=== PATIENT | female | born 1930 | race Caucasian/White ===

== ENCOUNTER 2018-03-21 07:30 | Inpatient (IN) ==
[2018-03-28 05:55] VITALS: BMI 29.0
[2018-03-28] MEDS ORDERED: LIDOCAINE 1% (10mg/ml) 2mL INJ PF SDV ID ONE (06:00)
[2018-03-28] MEDS ORDERED: MELOXICAM 15 MG TABLET PO ONE (06:00)
[2018-03-28] MEDS ORDERED: TRANEXAMIC ACID 1,000 MG in NS 100 ML IV ONE ×2 (06:00→07:00)
[2018-03-28] MEDS ORDERED: METOCLOPRAMIDE 10mg/2ml INJECTION IVP ONE (06:00)
[2018-03-28] MEDS ORDERED: ACETAMINOPHEN 500 MG TABLET PO ONE (06:00)
[2018-03-28] MEDS ORDERED: ONDANSETRON 4 MG/2 ML INJECTION IVP ONE (06:00)
[2018-03-28] MEDS ORDERED: FAMOTIDINE PB 20 MG/50 ML BAG IV ONE (06:00)
[2018-03-28] MEDS: LR 1,000 ML IV SCH ×3 (06:25→09:30)
[2018-03-28] MEDS: NOZIN NASAL SWAB NAS SCH ×5 (06:29→21:04)
[2018-03-28] MEDS ORDERED: VANCOMYCIN 1,000 MG INJECTION ONE (06:34)
[2018-03-28] MEDS ORDERED: CEFAZOLIN 1 G INJECTION IVP ONE (06:53)
[2018-03-28] MEDS ORDERED: FentaNYL 100 MCG/2 ML INJECTION ONE (07:11)
[2018-03-28] MEDS ORDERED: MIDAZOLAM 2mg/2ml INJECTION ONE (07:11)
[2018-03-28] MEDS ORDERED: BUPIVACAINE 0.75%/DEXTROSE 8.5% SPINAL 2 ML AMPULE IJ ONE (07:13)
[2018-03-28] MEDS ORDERED: LIDOCAINE 2% (100mg/5mL) 5ml PF SDV ONE (07:13)
[2018-03-28] MEDS ORDERED: KETAMINE 500 MG/10 ML INJECTION ONE (07:28)
[2018-03-28] MEDS ORDERED: VANCOMYCIN 1,000 MG INJECTION IAR ONE (07:46)
[2018-03-28] MEDS ORDERED: EPHEDRINE 50mg/ml INJECTION ONE (07:58)
[2018-03-28] MEDS ORDERED: EPINEPHrine PF 0.25 MG, BUPIVACAINE 0.25% PF 30 ML, KETOROLAC INJ 60 MG in NS 30 ML OPSITE ONE (08:00)
--- NOTE | 2018-03-28 08:16 | Anesthesia Preoperative Report ---
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 Proposed Procedure: right total knee arthroplasty NPO Since Date: 03/27/18 NPO Since Time: 23:00 Allergies/Adverse Reactions: Allergies Allergy/AdvReac Type Severity Reaction Status Date / Time gluten Allergy Intermediate itching, Verified 03/28/18 06:09 insomnia latex Allergy Mild RASH Verified 01/31/18 10:45 Penicillins Allergy Unknown Verified 03/28/18 06:09 glimepiride AdvReac Intermediate Verified 03/28/18 06:09 - Vital Signs Vital Signs: Temperature 97.8 F 03/28/18 05:53 Pulse Rate 71 03/28/18 06:14 Respiratory Rate 16 03/28/18 05:53 Blood Pressure 134/64 03/28/18 05:53 Pulse Oximetry 95 03/28/18 05:53 Height and Weight: Height 1.66 m Weight 80.4 kg Body Mass Index 29.0 - Medications Inpatient Medications: Current Medications Lactated Ringer's (Lactated Ringers) 1,000 mls @ 50 mls/hr IV .Q20H [facility] Last Admin: 03/28/18 07:55 Dose: 50 mls/hr Epinephrine HCl 0.25 mg/Bupivacaine HCl 30 ml/Ketorolac Tromethamine 60 mg/ Sodium Chloride 62.25 mls @ 1 mls/hr OPSITE INTRAOP ONE; Protocol Stop: 03/30/18 22:14 Isopropyl Alcohol (Nozin Nasal Swab) 1 each CALIN Q1M SKIP Stop: 03/28/18 11:03 Last Admin: 03/28/18 06:42 Dose: 1 each Sodium Chloride (Iv Flush) 10 - 80 ml IV PRN PRN PRN Reason: [place] Home Medications: Home Medications Medication Instructions Recorded Confirmed Type Flonase (Fluticasone) 50 mcg nasal 2 spray INTRANASAL DAILY 90 Days 09/27/17 Rx spray #48 g Lipitor (atorvastatin) 10 mg tablet 10 mg PO DAILY #90 tab 10/28/17 03/28/18 Rx Glucophage (metformin) 500 mg 1,000 mg PO BID #180 tab 11/21/17 03/28/18 Rx tablet levothyroxine 112 mcg tablet 112 mcg PO DAILY 90 Days #90 tab 01/16/18 03/28/18 Rx calcium citrate-vitamin D3 315 1 tab PO DAILY tab 01/26/18 03/28/18 History mg-200 unit tablet vit C 250 mg-E 200 unit-zinc 40 1 tab PO BID 01/26/18 03/28/18 History mg-copper 1 [id number] capsule Cetirizine [Zyrtec] 10 mg PO DAILY 03/21/18 03/28/18 History Oxybutynin IR [Ditropan] 5 mg PO DAILY 03/21/18 03/28/18 History Sertraline [Zoloft] 50 mg PO DAILY 03/21/18 03/28/18 History - Medical History Respiratory: Reports: Pneumonia (as a child), Other (seasonal allergies) DENIES: Sleep Apnea Cardiovascular: Reports: Other (hyperlipidemia) Gastrointestional: Reports: Gastroesophageal Reflux Disease (occasional), Other (IBS, gluten intolerance) Neuro/Musculoskeletal: Reports: Depression Renal/Endocrine: Reports: Diabetes Mellitus Type 2 (does not check bs at home ) , Thyroid Disease (hypothyroidism, on meds) Other History: Reports: Blood Transfusions (no known reactions), Other (vitiligo ) - Surgical History HEENT Surgeries: Reports: Eye Surgery (cataract ext with IOL-sarah), Tonsillectomy GI Surgery/Treatments: Reports: Colonoscopy (polyp) Musculoskeletal Surgery/Tx: Reports: Knee Arthroscopy (right and left) Reproductive Surgery/Treatment: Reports: Hysterectomy (vag hyst), Oophorectomy Anesthesia Reactions: None Hx Family Anesthesia Reaction: No - Social History Smoking Status: Never smoker Alcohol Intake Frequency: does not drink - Pertinent Findings Laboratory: CBC and BMP 03/28/18 06:13 BMP 03/28/18 06:13 Sodium 140 Potassium 4.2 Chloride 104 Carbon Dioxide 23 BUN 19.0 H Creatinine 0.5 L Glucose 153 H Calcium 9.5 EKG: Sinus Rhythm - Physical Exam Respiratory Exam: Present: lungs clear, bilateral breath sounds equal Cardiovascular Exam: Present: regular rate and rhythm - Airway Assessment Mallampati Score: II TMD: 3 Fingerbreadths Neck Extension: fair Overall Assessment: may be difficult intubation - ASA ASA Score: 2 - Plan Regional/Trunk Block: Spinal Peripheral Nerve Block: Adductor Canal-Right - Discussion Discussion: Discussed risks/options/alternatives of anesthesia and questions answered. Patient consents. Nursing pain assessment noted. Attestation Statement: Prior to the delivery of any anesthetic medication, I examined the patient, developed the plan, obtained the patient's consent and discussed the risk and benefits of the procedure with the patient/guardian. - Additional Information Seen by Anesthesia: Yes
[2018-03-28] MEDS ORDERED: ROPIVACAINE 0.5% (5mg/ml) 30ml INJ ONE (08:23)
--- NOTE | 2018-03-28 08:37 | Operative Note ---
- Procedure Preoperative Diagnosis: Right knee primary degenerative joint disease Postoperative Diagnosis: Same as preoperative diagnosis. Surgeon: Aicha Tao MD Psychiatry Teacher: Rafa Reardon Complications: None. Anesthesia: Spinal. Estimated Blood Loss: See Anesthesia Record. Fluids: Please see Anesthesia Record. Description of Procedure: Mrs. Blake and her right knee were identified and marked in the preoperative holding area. She was brought back to the operating suite. Spinal anesthetic was administered and she was placed supine on the operating table. The right lower extremity was prepped and draped in my normal sterile fashion. Timeout was performed. The [employer] robotic arm was used during the surgery. She will partially correctable varus deformity with a small flexion contracture of 5. A standard anterior midline incision followed by medial parapatellar arthrotomy was performed. Anterior fat pad and meniscus were removed. The patella was everted and a patellar osteotomy was performed leaving 14 mm of bone. Tibial and femoral arrays and checkpoints were placed both within the original incision. The bone was then registered with the [employer] robot. Osteophytes were removed and gaps were captured both 90 and 0 with correction. The knee was balanced by externally rotating the femoral component 2 and placing 1 of varus in the tibial component. This balanced her at 18 mm throughout. The [employer] robotic arm was then used to assist with the bone cuts. Posterior osteophytes and remaining meniscus were removed. Trial components were placed. We used a 4 femur and a 5 tibia with a 9 mm spacer and a 29 patella. She tracked well and was well balanced throughout range of motion. The arrays were then removed. The tibia was then stamped the proper rotation. The bone was prepared for cementing I then cemented the components into place and allowed them to cure in extension. Hemostasis was obtained with electrocautery. After the cement had cured the knee again was taken through range of motion and was well balanced and tracked well. After a final thorough irrigation with normal saline as well as Betadine 1 g vancomycin powder was placed into the knee joint. We then closed the capsule with #1 Vicryl. I then left my employee relations assistant closed the subcutaneous tissue with both 2-0 Vicryl in an interrupted fashion. The subcutaneous tissue closed with a 4-0 Monocryl followed by Dermabond. Mediplex dressing will be placed and the patient will be taken back to the recovery room under the care of anesthesia.
[2018-03-28] MEDS ORDERED: ONDANSETRON 4 MG/2 ML INJECTION IVP PRN ×2 (09:16→10:11)
[2018-03-28] MEDS ORDERED: HYDROMORPHONE 2 MG/ML INJECTION IVP PRN (09:16)
--- NOTE | 2018-03-28 09:16 | Anesthesia Postoperative Note ---
- Date and Time Date: 03/28/18 Time: 09:20 - Status Patient Participated in Evaluation: Patient Participated in Person Vital Signs: Temperature 97.8 F 03/28/18 05:53 Pulse Rate 71 03/28/18 06:14 Respiratory Rate 16 03/28/18 05:53 Blood Pressure 134/64 03/28/18 05:53 Pulse Oximetry 95 03/28/18 05:53 Respiratory Function: Airway Patent Cardiovascular Function: Regular Pulse EKG: Sinus Rhythm Mental Status: Alert and Oriented Pain Intensity: 0 Hydration: IV Infusing Nausea/Vomiting: None Complications During Recover: None Apparent - Follow-Up Instructions Instructions: Per Surgeon
--- NOTE | 2018-03-28 09:18 | Anesthesia Procedure Note ---
Peripheral Nerve Blockade - Procedure Physician: Sriram Tao MD Date: 03/28/18 Surgical Procedure: right knee arthroplasty Discussion: Discussed risks/options/alternatives of anesthesia and questions answered. Patient consents. Nursing pain assessment noted. Block Employed: Adductor Canal-Right Indication: Post-Operative Pain Approach: Right Side Confirmed Position: Supine Patient: Consent, Risks/Benefits Discussed, Informed, Post Block Act. Discussed Initial Vital Signs: Temperature 97.8 F 03/28/18 05:53 Temperature Source Oral 03/28/18 05:53 Pulse Rate 70 03/28/18 05:53 Respiratory Rate 16 03/28/18 05:53 Blood Pressure 134/64 03/28/18 05:53 Blood Pressure Mean 87 03/28/18 05:53 Blood Pressure Position Sitting 03/28/18 05:53 Pulse Oximetry 95 03/28/18 05:53 Oxygen Delivery Method 03/28/18 05:53 Post Vital Signs: Temperature 97.8 F 03/28/18 05:53 Pulse Rate 71 03/28/18 06:14 Respiratory Rate 16 03/28/18 05:53 Blood Pressure 134/64 03/28/18 05:53 Pulse Oximetry 95 03/28/18 05:53 Initial Pain Pain Score: 0 Post Block Pain Score: 0 Prep: Chlorhexadine/ETOH Ultrasound Used?: Yes - Injectate Ropivacaine (%): 0.5 Ropivacaine (mL): 15 Injection: Injection made incrementally with constant monitoring and aspiration every ml
--- NOTE | 2018-03-28 09:54 | XRay Report ---
Indication: postoperative image PROCEDURE: XR knee RT 2V: Encounter: Initial Comparison: December 20, 2017 Findings: Postoperative changes of right total knee replacement are seen. There is expected postoperative subcutaneous gas. No evidence of hardware failure or acute fracture. No retained radiopaque surgical instruments or sponges. Overlying material causing artifact. Impression: New right total knee prosthesis without evidence of immediate complication. .
[2018-03-28] MEDS ORDERED: DiphenhydrAMINE 25 MG CAPSULE PO PRN (10:11)
[2018-03-28] MEDS ORDERED: NOZIN NASAL SWAB NAS ONE (10:11)
[2018-03-28] MEDS ORDERED: LORazepam 1 MG TABLET PO PRN (10:11)
[2018-03-28] MEDS ORDERED: DiphenhydrAMINE 50 MG/ML INJECTION IVP PRN (10:11)
[2018-03-28] MEDS ORDERED: DEXAMETHASONE 20 MG/5 ML INJECTION IVP ONE (10:11)
[2018-03-28] MEDS: ACETAMINOPHEN 325 MG TABLET PO SCH ×4 (10:52→21:03)
[2018-03-28] MEDS: DOCUSATE SODIUM 100 MG CAPSULE PO SCH ×2 (10:52→21:03)
[2018-03-28] MEDS: NS 1,000 ML IV SCH (10:53)
[2018-03-28] MEDS ORDERED: SALINE FLUSH 10ml SYRINGE IV PRN (10:54)
[2018-03-28] MEDS: POLYETHYL GLYCOL 3350 17gm PACKET PO SCH (10:58)
[2018-03-28] MEDS: FLUTICASONE NASAL SPRAY 50mcg EA NOSTRIL SCH (10:59)
[2018-03-28] MEDS: CETIRIZINE 10 MG TABLET PO SCH (10:59)
[2018-03-28] MEDS: SERTRALINE 50 MG TABLET PO SCH (11:39)
[2018-03-28] MEDS: LEVOTHYROXINE 112 MCG TABLET PO SCH (11:39)
[2018-03-28] MEDS: Oxycodone *IR* 5 MG TABLET PO PRN (12:16)
[2018-03-28] MEDS: INSULIN ASPART 100unit/ml INJECTION SQ PRN (14:14)
[2018-03-28] MEDS: CEFAZOLIN 2 G in NS 100 ML IV SCH ×2 (15:13→23:00)
[2018-03-28] MEDS: NAPROXEN 220 MG TABLET PO SCH (17:14)
[2018-03-28] MEDS ORDERED: ATORVASTATIN 10 MG TABLET PO SCH (21:00)
[2018-03-28] MEDS ORDERED: SENNOSIDES 8.6 MG TABLET PO SCH (21:00)
[2018-03-28] MEDS: ASPIRIN *EC* 81 MG TABLET PO SCH (21:04)
[2018-03-29] MEDS: NS 1,000 ML IV SCH ×2 (01:33→11:18)
[2018-03-29] MEDS: Oxycodone *IR* 5 MG TABLET PO PRN ×3 (06:00→13:13)
[2018-03-29] MEDS: NOZIN NASAL SWAB NAS SCH ×2 (06:00→15:20)
[2018-03-29] MEDS: LEVOTHYROXINE 112 MCG TABLET PO SCH (06:00)
[2018-03-29] MEDS ORDERED: METFORMIN 1,000 MG TABLET PO SCH (08:00)
--- NOTE | 2018-03-29 08:11 | Orthopedic Progress Note ---
Date: Date: 03/29/18 Time: 805 Subjective/Severity of Illness: Rachell is doing well. She didn't sleep well due to so many interruptions. Pain is not too bad. Her oxygen dipped into the upper 80's last night and she was put on [place] oxygen. Denies feeling SOA. She has coughed but states that is not unusual for her with nasal drainage when she is recumbent. No CP or GI complaints. She is planning on going home and will have a son living with her for several days. Orthopedic Exam Vital signs: Temperature 97.6 F 03/29/18 07:26 Pulse Rate 57 L 03/29/18 07:26 Respiratory Rate 14 03/29/18 07:26 Blood Pressure 118/84 03/29/18 07:26 Pulse Oximetry 93 03/29/18 07:26 - Constitutional General Appearance: Present: alert, cooperative, no acute distress - Respiratory Exam Present: non-labored - Dressing Dressing: dry, intact, no drainage - Neurological Exam Present: no deficits - Psychiatric Exam Present: alert, normal affect - Labs Result Diagrams: 03/29/18 03:54 03/29/18 03:54 Abnormal lab results 03/29/18 03/29/18 Range/Units 03:54 03:54 Hgb 10.4 L (12-16) GM/DL BUN 18.0 H (7-17) MG/DL Creatinine 0.6 L (0.7-1.2) mg/dL BUN/Creatinine Ratio 30 H (6-26) RATIO Glucose 136 H (65-110) MG/DL Calcium 8.3 L D (8.4-10.2) MG/DL H & H 03/29/18 Range/Units 03:54 Hgb 10.4 L (12-16) GM/DL Orthopedic Assessment and Plan (1) Primary osteoarthritis of right knee Status: Acute Assessment and Plan: Aspirin protocol for VTE prophylaxis. SCD's for added DVT coverage. Blood sugars 136-153 range. Will resume Metformin. PT/OT services to improve independent function. Discharge Planning per Case Management. - Anticoagulation Therapy Anticoagulation: ASA 81 mg PO BID x6 weeks - Additional Diagnoses Diabetes: resume oral medications Hospital Course Summary Disclaimer: The visit summary below is not to be considered part of the above Progress Note.
[2018-03-29] MEDS: SERTRALINE 50 MG TABLET PO SCH (08:40)
[2018-03-29] MEDS: CETIRIZINE 10 MG TABLET PO SCH (08:40)
[2018-03-29] MEDS: NAPROXEN 220 MG TABLET PO SCH (08:41)
[2018-03-29] MEDS: ASPIRIN *EC* 81 MG TABLET PO SCH (08:42)
[2018-03-29] MEDS: ACETAMINOPHEN 325 MG TABLET PO SCH ×2 (08:42→13:14)
[2018-03-29] MEDS: DOCUSATE SODIUM 100 MG CAPSULE PO SCH (08:43)
[2018-03-29] MEDS: POLYETHYL GLYCOL 3350 17gm PACKET PO SCH (08:43)
[2018-03-29] MEDS: FLUTICASONE NASAL SPRAY 50mcg EA NOSTRIL SCH (08:44)
[2018-03-29] MEDS ORDERED: SENNOSIDES 8.6 MG TABLET PO PRN (08:59)
[2018-03-29 11:47] VITALS: BP 138/62; PULSE 58; O2SAT 95
[2018-03-29] MEDS: INSULIN ASPART 100unit/ml INJECTION SQ PRN (11:53)
[2018-03-29 11:57] VITALS: TEMP 97.2
--- NOTE | 2018-03-29 12:58 | Discharge Summary ---
Letter to PCP Cover Letter: This is a short letter to update you on your patient's status and to ask for your assistance in managing their postoperative needs. Rachell Blake underwent an elective right total knee arthroplasty by Dr. Tao on 03/28/18. Aspirin therapy was initiated for DVT prophylaxis. Aspirin 81mg should be given BID for six weeks postoperatively. Details for their hospitalization can be found in the discharge summary attached. The patient is scheduled to see you one week after surgery for a post-operative check. I hope you find the discharge summary informative and helpful as you resume care of your patient after their surgery. If our office can be of any assistance, please feel free to contact us any time. Orthopedic Discharge Info Date of admission: 03/28/18 05:32 Primary care physician: Joselin Alejandro APRN Attending Physician: Sriram Tao MD Consults: 03/28/18 05:42 Consult to Anesthesiology [CONS] Routine Reason For Exam: Preoperative Assessment 03/28/18 10:11 Case Management Consult [CONS] Routine Reason For Exam: Discharge Planning DME-Walker [CONS] Routine Height: 5 ft 5.5 in Weight: 80.4 kg Total Joint Outpatient Therapy [CONS] Routine Comment: Remove dressing in 2 weeks - Discharge Diagnosis (1) Primary osteoarthritis of right knee Status: Acute - Laboratory Result Diagrams: 03/29/18 03:54 03/29/18 03:54 Laboratory: Abnormal lab results 03/29/18 03/29/18 Range/Units 03:54 03:54 Hgb 10.4 L (12-16) GM/DL BUN 18.0 H (7-17) MG/DL Creatinine 0.6 L (0.7-1.2) mg/dL BUN/Creatinine Ratio 30 H (6-26) RATIO Glucose 136 H (65-110) MG/DL Calcium 8.3 L D (8.4-10.2) MG/DL H & H 03/29/18 Range/Units 03:54 Hgb 10.4 L (12-16) GM/DL Orthopedic Discharge HPI - HPI Comments This patient was admitted for elective surgical tx of end stage degenerative joint disease that failed to respond to conservative treatment. Further details of this is found in the admission H&P. Orthopedic Hospital Course Hospital course: 03/29/18 12:56 After appropriate preoperative clearance and signing of operative consent, the patient was given IV antibiotics, according to orthopedic protocol. The patient was taken to the operating room and underwent elective right total knee arthroplasty on 03/28/18. Following surgery, antibiotics were discontinued less than 24 hours according to joint protocol. Aspirin was initiated and SCDs added for DVT prevention. The dressing was clean, dry, and intact. Pain control was obtained via multimodal approach. Bowel motivation addressed with scheduled and PRN medications. Early mobilization was initiated through PT services. Discharge arrangements made by a collaborative effort between the patient and Case Management. Her post op hgb was 10.4 at discharge and electrolytes were normal. Her glucose was in the 130-150 range and Metformin was restarted. Follow-up is scheduled in 2-3 weeks. Discharge instructions given by orthopedic providers and nursing staff at discharge. Discharge condition was good. Care extended to > 2 midnight stays?: No Discharge Plan - Med Rec/Dispo Referrals/Follow Up: Joselin Alejandro APRN [Primary Care Provider] - 04/04/18 1:45 pm Rafa Reardon PA [Physician Cellular Equipment Repairer] - 04/19/18 10:30 am [place] Inst[place] [facility] [place] Prescriptions: New Acetaminophen [Tylenol] 650 mg PO QID tablet Aspirin *EC* [Ecotrin] 81 mg PO BID tablet Docusate Sodium [Colace] 100 mg PO BID PRN capsule PRN Reason: Constipation PEG 3350 17gm PACKET [Miralax] 17 gm PO DAILY PRN packet PRN Reason: Constipation /Stool Softening Oxycodone *IR* [Roxicodone *Ir*] 5 - 10 mg PO Q3H PRN #50 tablet PRN Reason: Breakthrough Pain Naproxen [Aleve (Naproxen) 220 mg] 440 mg PO BIDWM tablet Continue Cetirizine [Zyrtec] 10 mg PO DAILY Oxybutynin IR [Ditropan] 5 mg PO DAILY Sertraline [Zoloft] 50 mg PO DAILY levothyroxine 112 mcg tablet 112 mcg PO DAILY 90 Days #90 tab calcium citrate-vitamin D3 315 mg-200 unit tablet 1 tab PO DAILY tab vit C 250 mg-E 200 unit-zinc 40 mg-copper 1 [id number] capsule 1 tab PO BID Flonase (Fluticasone) 50 mcg nasal spray 2 spray INTRANASAL DAILY 90 Days # 48 g Lipitor (atorvastatin) 10 mg tablet 10 mg PO DAILY #90 tab Glucophage (metformin) 500 mg tablet 1,000 mg PO BID #180 tab - Disposition 01 Discharged Home, Self-Care - Dismissal Complete Discharge Instructions are:: Complete
[2018-03-29 13:15] VITALS: RESP 16
[2018-03-30] MEDS ORDERED: BISACODYL 10 MG SUPPOSITORY RECTALLY SCH (20:00)
== END 2018-03-29 15:20 | disposition home or self-care (01) | DRG 470 ==
LOC: NMC.PERIOP 03-28 05:32 → SRG 03-28 09:57
PROVIDERS: ADMIT Orthopaedic Surgery; ATTEND Orthopaedic Surgery

== ENCOUNTER 2018-04-11 16:28 | Inpatient (IN) ==
[2018-04-11] MEDS ORDERED: SALINE FLUSH 10ml SYRINGE IVF PRN (17:03)
[2018-04-11] MEDS ORDERED: PROCHLORPERAZINE 10 MG/2 ML INJECTION IVP ONE (17:04)
--- NOTE | 2018-04-11 17:07 | Emergency Department Report ---
General Adult HPI - General Chief complaint: Medical Emergency Stated complaint: weakness/not feeling well post surgery Time Seen by Provider: 04/11/18 17:02 Source: patient Mode of arrival: ambulatory Limitations: no limitations - History of Present Illness HPI narrative: Patient's a 7-year-old female, status post right total knee done by Dr. Tao. Patient doing relatively well at home, however the last 2 days patient's had significant not feeling well, wooziness, nausea with some mild headache. Patient not having any increased knee pain no discharge or swelling. Patient brought to the ER for evaluation - Related Data Home Medications Medication Instructions Recorded Confirmed Acetaminophen 650 mg PO QID 04/11/18 04/11/18 Aspirin *EC* [Ecotrin] 81 mg PO BID 04/11/18 04/11/18 Atorvastatin [Lipitor] 10 mg PO DAILY 04/11/18 04/11/18 CALCIUM CITRATE 315mg + D 1 tab PO DAILY 04/11/18 04/11/18 [Citrical + D] Cetirizine HCl [Zyrtec] 10 mg PO DAILY 04/11/18 04/11/18 Docusate Sodium [Colace] 100 mg PO BID PRN 04/11/18 04/11/18 Fluticasone Nasal [place] [Flonase] 1 spray EA NOSTRIL DAILY 04/11/18 04/11/18 Metformin HCl 1,000 mg PO BID 04/11/18 04/11/18 Naproxen [Aleve (Naproxen) 220 mg] 440 mg PO BIDWM 04/11/18 04/11/18 Oxybutynin IR [Ditropan] 5 mg PO DAILY 04/11/18 04/11/18 Oxycodone *IR* [Roxicodone *Ir*] 5 - 10 mg PO Q3H PRN 04/11/18 04/11/18 PEG 3350 17gm PACKET [Miralax] 17 gm PO DAILY PRN 04/11/18 04/11/18 Sertraline [Zoloft] 50 mg PO DAILY 04/11/18 04/11/18 Vit C/E/Zn/Coppr/Lutein/Zeaxan 1 cap PO BID 04/11/18 04/11/18 [Preservision Areds 2 Softgel] Previous Rx's Medication Instructions Recorded Milk of Magnesia [Mom] 30 ml PO DAILY PRN #210 ml 04/13/18 levothyroxine 112 mcg tablet 112 mcg PO DAILY #90 tab 04/17/18 Allergies Allergy/AdvReac Type Severity Reaction Status Date / Time gluten Allergy Intermediate itching, Verified 04/11/18 16:53 insomnia latex Allergy Mild RASH Verified 04/11/18 16:53 Penicillins Allergy Unknown Verified 04/11/18 16:53 glimepiride AdvReac Intermediate Verified 04/11/18 16:53 Review of Systems Constitutional: Reports: weakness. Denies: fever, chills Eyes: Denies: eye pain, eye discharge, vision change ENT: Denies: throat pain, dental pain Cardiovascular: Denies: chest pain, palpitations Respiratory: Denies: cough, dyspnea, wheezes Gastrointestinal: Denies: abdominal pain, nausea, vomiting Genitourinary: Denies: dysuria, frequency Musculoskeletal: Reports: as per HPI Neurological: Reports: headache, weakness. Denies: numbness, paresthesias Psychiatric: Denies: anxiety Endocrine: Reports: fatigue Hematological/Lymphatic: Denies: easy bleeding PFSH Patient Stated Medical History Other Respiratory Yes: seasonal allergies Diabetes Mellitus Type 2 Yes: does not check bs at home Gastroesophageal Reflux Yes: occasional Disease Clinic Medical History (Last Reviewed 04/04/18 @ 13:40 by ALBIN Block) Gluten intolerance (Chronic Medical) Tubular adenoma of colon (Chronic Medical) Depressive disorder (Chronic Medical) Type 2 diabetes mellitus (Chronic Medical) Vitiligo (Chronic Medical) Urge incontinence (Chronic Medical) Benign hematuria (Chronic Medical) mild Hypothyroidism (Chronic Medical) IBS (irritable bowel syndrome) (Chronic Medical) constipation Environmental and seasonal allergies (Chronic Medical) Hyperlipidemia (Chronic Medical) Surgical History: Tonsillectomy. Vaginal hysterectomy for fibroids in 1968. Bladder suspension and oophorectomy in 1988. Right cataract 08/2009; left cataract 09/2009. 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 Right knee arthroscopy, meniscus repair (05/2011). Left knee arthroscopy with meniscus repair (09/2013). Right total knee replacement (03/28/2018) Family History: Family History (Last Reviewed 04/04/18 @ 13:40 by ALBIN Block) Father , age 79 Stomach cancer Mother , age 89 Cancer of breast Heart attack, Onset Age: 72 Brother , age 73 Esophageal cancer Sister , age 74 Pancreatic cancer Sister , age 84 Dementia Sister , age 94 Irregular heart rate CHF (congestive heart failure) - Social History Smoking status: Never smoker Alcohol intake frequency: does not drink Housing: other Current occupational status: retired Current residence: Apartment/Private Home Physical Exam - Limitations Limitations: no limitations - General General appearance: alert, in no apparent distress - Head Head exam: atraumatic, normocephalic, normal inspection - Eye Eye exam: Present: PERRL, EOMI - ENT ENT exam: Present: normal oropharynx, mucous membranes moist, TM's normal bilaterally - Neck Neck exam: Present: trachea midline. Absent: tenderness - Chest Chest inspection: Present: symmetric chest wall rise. Absent: tenderness - Respiratory Respiratory exam: Present: normal lung sounds bilaterally. Absent: respiratory distress, wheezes, stridor - Cardiovascular Cardiovascular exam: Present: regular rate, normal rhythm, normal heart sounds - Abdominal Exam Abdominal exam: Present: soft, normal bowel sounds. Absent: distention, tenderness - Extremities Exam Extremities exam: Present: full ROM, other (well-healing wound, covered bandage is not removed no signs of erythema no tenderness to palpation) - Skin Skin exam: Present: warm, dry - Neurological Exam Neurological exam: Present: alert, oriented X3 - Psychiatric Psychiatric exam: Present: normal affect, normal mood Course Vital Signs Temperature 97.8 F 04/11/18 16:28 Pulse Rate 73 04/11/18 16:28 Respiratory Rate 18 04/11/18 16:28 Blood Pressure 160/74 H 04/11/18 16:28 Pulse Oximetry 96 04/11/18 16:28 Temperature 98.3 F 04/13/18 15:16 Pulse Rate 62 04/13/18 15:16 Respiratory Rate 18 04/13/18 15:16 Blood Pressure 128/57 04/13/18 15:16 Pulse Oximetry 97 04/13/18 15:16 Medical Decision Making - Medical Records Medical records reviewed: Yes: I reviewed the patient's medical records. - Lab Data Lab results reviewed: Yes: I reviewed the patient's lab results. Result diagrams: 04/11/18 17:26 04/13/18 09:38 Lab Results 04/11/18 04/11/18 04/11/18 Range/Units 17:26 17:26 17:26 WBC 5.3 (4.5-11.0) T/MM3 RBC 3.93 L (4.00-5.20) M/MM3 Hgb 11.8 L (12-16) GM/DL Hct 34.5 L (36-46) % MCV 87.8 (80-100) UM3 MCH 30.0 (26-34) UUG MCHC 34.2 (31-37) GM/DL RDW Std Deviation 37.6 (36.9-50.2) FL Plt Count 360 D (130-400) T/MM3 MPV 9.3 L (9.4-12.4) UM3 Immature Gran % (Auto) 0.2 (0.0-0.5) % Neut % (Auto) 80.2 H (33-66) % Lymph % (Auto) 14.8 L (23-45) % [place] % (Auto) 3.8 (0-9.0) % Eos % (Auto) 0.4 (0-4) % Baso % (Auto) 0.6 (0-2) % Neut # (Auto) 4.3 (1.8-7.7) T/MM3 Lymph # (Auto) 0.8 L (1-4.8) T/MM3 [place] # (Auto) 0.2 (0-0.8) T/MM3 Eos # (Auto) 0.0 (0-0.5) T/MM3 Baso # (Auto) 0.0 (0-0.2) T/MM3 Abs Immat Gran (auto) 0.01 (0.00-0.03) T/MM3 Turbidity < 20 (0-20) Sodium 123 L (136-146) MEQ/L Potassium 3.8 (3.6-5) MEQ/L Chloride 89 L (98-107) MEQ/L Carbon Dioxide 20 L (22-30) MEQ/L Anion Gap 14 (5-15) meq/L BUN 10.0 (7-17) MG/DL Creatinine 0.4 L (0.7-1.2) mg/dL Estimated Creat Clear 43 (>50) mL/min GFR Calculation 151 (>60) mL/min BUN/Creatinine Ratio 25 (6-26) RATIO Glucose 183 H (65-110) MG/DL Calculated Osmolality 242 L (261-280) MOSM/KG Calcium 8.7 (8.4-10.2) MG/DL Magnesium (1.6-2.3) MG/DL Total Bilirubin 0.40 (0.20-1.30) MG/DL Icterus Index < 2 (0-7) AST 26 (14-36) U/L ALT 17 (1-35) U/L Alkaline Phosphatase 86 (38-126) U/L Troponin I < 0.012 (0-0.12) ng/ml Total Protein 7.2 (6.3-8.2) g/dL Albumin 4.4 (3.5-5.0) g/dL Globulin 2.8 (2.4-3.6) G/DL Albumin/Globulin Ratio 1.6 (1.1-2.2) RATIO TSH 2.02 (0.47-4.68) mIU/L Specimen Hemolysis < 15 (0-25) 08/14/18 Range/Units 17:26 WBC (4.5-11.0) T/MM3 RBC (4.00-5.20) M/MM3 Hgb (12-16) GM/DL Hct (36-46) % MCV (80-100) UM3 MCH (26-34) UUG MCHC (31-37) GM/DL RDW Std Deviation (36.9-50.2) FL Plt Count (130-400) T/MM3 MPV (9.4-12.4) UM3 Immature Gran % (Auto) (0.0-0.5) % Neut % (Auto) (33-66) % Lymph % (Auto) (23-45) % [place] % (Auto) (0-9.0) % Eos % (Auto) (0-4) % Baso % (Auto) (0-2) % Neut # (Auto) (1.8-7.7) T/MM3 Lymph # (Auto) (1-4.8) T/MM3 [place] # (Auto) (0-0.8) T/MM3 Eos # (Auto) (0-0.5) T/MM3 Baso # (Auto) (0-0.2) T/MM3 Abs Immat Gran (auto) (0.00-0.03) T/MM3 Turbidity (0-20) Sodium (136-146) MEQ/L Potassium (3.6-5) MEQ/L Chloride (98-107) MEQ/L Carbon Dioxide (22-30) MEQ/L Anion Gap (5-15) meq/L BUN (7-17) MG/DL Creatinine (0.7-1.2) mg/dL Estimated Creat Clear (>50) mL/min GFR Calculation (>60) mL/min BUN/Creatinine Ratio (6-26) RATIO Glucose (65-110) MG/DL Calculated Osmolality (261-280) MOSM/KG Calcium (8.4-10.2) MG/DL Magnesium 1.7 (1.6-2.3) MG/DL Total Bilirubin (0.20-1.30) MG/DL Icterus Index (0-7) AST (14-36) U/L ALT (1-35) U/L Alkaline Phosphatase (38-126) U/L Troponin I (0-0.12) ng/ml Total Protein (6.3-8.2) g/dL Albumin (3.5-5.0) g/dL Globulin (2.4-3.6) G/DL Albumin/Globulin Ratio (1.1-2.2) RATIO TSH (0.47-4.68) mIU/L Specimen Hemolysis (0-25) - Radiology Data Radiology results reviewed: Yes: I reviewed the patient's radiology results. KUB: No free air nor air-fluid levels nonspecific bowel gas pattern Disposition Clinical Impression: Hyponatremia [place] [facility] [place] Condition: Stable - Seen By: physician
--- NOTE | 2018-04-11 18:22 | History & Physical Report ---
History of Present Illness Date: 04/12/18 Chief complaint: weakness HPI: Pt is an 87 yo female who underwent R total knee replacement on 03/28/[address] Tao. She returned to her apartment at [place] following surgery and was doing well. She states that she had some increased pain with some PT treatments recently and had been taking her oxycodone 2 pills 3-4x a day and got constipated. Her last "good" BM was 9 days ago. She's had some small movements (2 today), but doesn't feel at all that she has had significant movement. She is able to pass gas and isn't have pain, is just uncomfortable. She has had some nausea and decreased appetite the past few days but no vomiting. She ate a small lunch today. She's been taking a subtherapeutic dose of daily miralax and Colace. She has tried 2 suppositories and had a "little success" with each supp. She has had progressive weakness over the past several days attributed to not eating very much. She states she had been doing well just walking with a cane prior to her recent setback. In the ED, she had abdominal films showing increased gas/stool. Her sodium today was 123 and was 138 on day of dismissal following surgery. Hgb stable at 11.8 -on discharge it was 10.4. (Pre-op 13.7) Patient lives independently in a [address] at [place]. Her hope is to return home. Review of Systems All systems PM: 10-point ROS was reviewed, no additional remarkable complaints except (weakness, fatigue, decreased appetite, nausea, R knee pain) Past Medical History Medical History: Medical History (Last Reviewed 04/04/18 @ 13:40 by Karli Hawk [facility]) Gluten intolerance (Chronic) Tubular adenoma of colon (Chronic) Depressive disorder (Chronic) Type 2 diabetes mellitus (Chronic) Vitiligo (Chronic) Urge incontinence (Chronic) Benign hematuria (Chronic) mild Hypothyroidism (Chronic) IBS (irritable bowel syndrome) (Chronic) constipation Environmental and seasonal allergies (Chronic) Hyperlipidemia (Chronic) Surgical History: Tonsillectomy. Vaginal hysterectomy for fibroids in 1968. Bladder suspension and oophorectomy in 1988. Right cataract 08/2009; left cataract 09/2009. Right knee arthroscopy, meniscus repair (05/2011). Left knee arthroscopy with meniscus repair (09/2013). Right total knee replacement (2017) Family History: Family History Father , age 79 Stomach cancer Mother , age 89 Cancer of breast Heart attack, Onset Age: 72 Brother , age 73 Esophageal cancer Sister , age 74 Pancreatic cancer Sister , age 84 Dementia Sister , age 94 Irregular heart rate CHF (congestive heart failure) Family History: As Above - Social History Smoking status: Never smoker Substance use type: does not use Alcohol intake frequency: does not drink Housing: other ([facility] [place] [address]) Household members: none Current occupational status: retired Current residence: Apartment/Private Home Social history: PCP- Joselin Alejandro APRN Uro - Dr. Evans Ortho -Dr Tao Medications Home Medications Medication Instructions Recorded Confirmed Type Acetaminophen 650 mg PO QID 04/11/18 04/11/18 History Aspirin *EC* [Ecotrin] 81 mg PO BID 04/11/18 04/11/18 History Atorvastatin [Lipitor] 10 mg PO DAILY 04/11/18 04/11/18 History CALCIUM CITRATE 315mg + D 1 tab PO DAILY 04/11/18 04/11/18 History [Citrical + D] Cetirizine HCl [Zyrtec] 10 mg PO DAILY 04/11/18 04/11/18 History Docusate Sodium [Colace] 100 mg PO BID PRN 04/11/18 04/11/18 History Fluticasone Nasal [place] [Flonase] 1 spray EA NOSTRIL DAILY 04/11/18 04/11/18 History Levothyroxine Tab [Synthroid] 112 mcg PO DAILY 04/11/18 04/11/18 History Metformin HCl 1,000 mg PO BID 04/11/18 04/11/18 History Naproxen [Aleve (Naproxen) 220 mg] 440 mg PO BIDWM 04/11/18 04/11/18 History Oxybutynin IR [Ditropan] 5 mg PO DAILY 04/11/18 04/11/18 History Oxycodone *IR* [Roxicodone *Ir*] 5 - 10 mg PO Q3H PRN 04/11/18 04/11/18 History PEG 3350 17gm PACKET [Miralax] 17 gm PO DAILY PRN 04/11/18 04/11/18 History Sertraline [Zoloft] 50 mg PO DAILY 04/11/18 04/11/18 History Vit C/E/Zn/Coppr/Lutein/Zeaxan 1 cap PO BID 04/11/18 04/11/18 History [Preservision Areds 2 Softgel] Allergies Allergy/AdvReac Type Severity Reaction Status Date / Time gluten Allergy Intermediate itching, Verified 04/11/18 16:53 insomnia latex Allergy Mild RASH Verified 04/11/18 16:53 Penicillins Allergy Unknown Verified 04/11/18 16:53 glimepiride AdvReac Intermediate Verified 04/11/18 16:53 Exam Vital Signs: Temperature 97.8 F 04/11/18 16:28 Pulse Rate 73 04/11/18 17:31 Respiratory Rate 16 04/11/18 17:31 Blood Pressure 160/70 H 04/11/18 17:31 Pulse Oximetry 95 04/11/18 17:31 Height/Weight/BMI: Height 1.65 m Weight 82.2 kg - Constitutional Present: no acute distress, well nourished, well developed - Routine HEENT Exam Head: Present: normocephalic, atraumatic Eye: Present: EOMI, PERRL ENT: Present: mucous membranes moist, oropharynx clear - Routine Neck Exam Present: supple. Absent: JVD, lymphadenopathy - Routine Respiratory Exam Present: CTA bilaterally. Absent: wheezes - Routine Cardiovascular Exam Present: RRR, no murmur - Routine Abdominal Exam Present: soft, normoactive bowel sounds. Absent: tenderness, distended - Routine Extremities Exam Present: no edema, normal capillary refill Comments: R knee with dressing intact. Edges of lower aspect of dressing pulled back slightly to eval mild area of slight erythema noted at lateral edge of dressing at level of patella. No significant tenderness. No pus drainage. No significant swelling. - Routine Skin Exam Present: dry, warm - Routine Neurological Exam Present: alert, oriented X3, CN II-XII intact - Routine Psychiatric Exam Present: normal affect, cooperative Results - Labs CBC & Chem 7: 04/11/18 17:26 04/12/18 09:43 Assessment and Plan (1) Hyponatremia Current visit: Yes Status: Acute Assessment and Plan: Assessment Hyponatremia - POA Knee pain - S/P TRKA 03/28/[address] Tao Weakness Constipation r/t narcotic use Anemia - POA Type 2 DM (A1C 7.0% on 01/26/18) Depression Gluten intolerance Hypothyroidism (TSH 0.56 on 09/29/17) IBS HLD Urge incontinence Overweight - BMI 28 Plan Admit, OBS. Received NS 500cc bolus in ER. Continue NS at 75ml/hr with sodium labs q 6 hrs. Adjust fluids as needed based on Na levels. Give Fleets enema and MOM/prune juice. Miralax q am and Senna q hs. Continue oxycodone IR 5-10mg as needed up to q 3 hrs. Tylenol QID routinely. Hold Aleve d/t Fleet enema administration. Hold ditropan for now due to constipation. Hold metformin until she is taking po well. SSI. Accuchecks. Ortho consult - Rafa Reardon PA-C will see patient in am. PT/OT consult SCD/[place] for DVT ppx Code status: DNR PCP - Joselin Alejandro APRN DVT Prophylaxis: SCD's, Lovenox Resuscitation Status: Do Not Resuscitate - Physician Narrative Physician: Zacarias Biggs MD Narrative: Date: 04/11/18 Time: 1815 I have independently interviewed and examined patient. Patient chart reviewed. Case discussed with my PA. Care plan developed with my supervision, agree with above. A pleasant 87-year-old female patient status post right total knee replacement surgery performed on 03/28/[address] Tao. Patient discharged on narcotic medication to assist with postoperative pain control, noted having constipation. Reports not having a good bowel movement for approximately 9 days prior to admission. Presented to emergency room, serum sodium of 123 when compared to 138 on 03/29/2018. Hospitalist service was contacted by ER physician with hyponatremia and patient admitted. We will provide milk of magnesia with prune juice by mouth and fleets enema to assist with symptoms. PFSH: As above ROS: 10 point review negative except - fatigue, weakness, nausea, right-sided knee pain, decreased oral intake. Physical exam: General: Alert, awake, oriented x3. Not in acute distress. Head: Pupils equal, round, reactive to light and accommodation. Extraocular movements intact. Neck: No elevation in JVP. No pharyngeal erythema noted. Chest: The patient does not use accessory muscles for breathing. Lungs: Breath sounds audible on auscultation bilateral lung alfaro. No wheezing , no rhonchi, no crepitations, no crackles. No pleural rub. CVS: S1, S2 heard on auscultation. Normal rate and rhythm. No murmur, no S3/S4 gallops. Abdomen: Soft, nontender, no distention. Bowel sounds appreciated on auscultation. Skin: No rashes, no induration, no erythema. Capillary refill less than 4 seconds. Extremities: Patient's right knee with anterior dressing status post right total knee replacement surgery performed 03/28/1981. No evidence of pedal edema bilateral lower extremities. No calf tenderness bilaterally. Palpable dorsalis pedis and posterior tibial pulses bilateral lower extremities. Assessment: Symptomatic hyponatremia, status post right total knee replacement surgery with knee pain, constipation with history of narcotic use, depression, type 2 diabetes mellitus, IBS, hypothyroidism, dyslipidemia, anemia. Plan: IV fluids normal saline at 75 mL per hour. Will check sodium levels every 6 hours. Oxycodone when necessary pain. We will provide oral milk of magnesia with prune juice and fleets enema to assist with symptoms. Orthopedic PAaRfa consulted in the emergency room and will evaluate patient tomorrow. Hospital Course Summary Disclaimer: The visit summary below is not to be considered part of the above Progress Note. Hospital Course: 04/11/18 Admit, OBS. Received NS 500cc bolus in ER. Continue NS at 75ml/hr with sodium labs q 6 hrs. Adjust fluids as needed based on Na levels. Give Fleets enema and MOM/prune juice. Miralax q am and Senna q hs. Continue oxycodone IR 5-10mg as needed up to q 3 hrs. Tylenol QID routinely. Hold Aleve d/t Fleet enema administration. Hold ditropan for now due to constipation. Hold metformin until she is taking po well. SSI. Accuchecks. Ortho consult - Rafa Reardon PA-C will see patient in am. PT/OT consult SCD/Lovenox for DVT ppx Code status: DNR PCP - Joselin Alejandro, DANA
[2018-04-11] MEDS ORDERED: Oxycodone *IR* 5 MG TABLET PO PRN (19:02)
[2018-04-11] MEDS ORDERED: FLEET PHOSPHO - SODA ENEMA 133ml PR ONE (19:02)
[2018-04-11] MEDS ORDERED: POLYETHYL GLYCOL 3350 17gm PACKET PO PRN (19:02)
[2018-04-11] MEDS: NS 1,000 ML IV SCH (19:16)
[2018-04-11] MEDS: SENNOSIDES 8.6 MG TABLET PO SCH (21:47)
[2018-04-11] MEDS: ACETAMINOPHEN 325 MG TABLET PO SCH (21:50)
[2018-04-11] MEDS: ASPIRIN *EC* 81 MG TABLET PO SCH (21:51)
[2018-04-11] MEDS: INSULIN ASPART 100unit/ml INJECTION SQ PRN (21:55)
[2018-04-12] MEDS ORDERED: LEVOTHYROXINE 112 MCG TABLET PO ONE (07:00)
--- NOTE | 2018-04-12 08:28 | XRay Report ---
Indication: abdominal pain postsurgical ? constipation PROCEDURE: XR KUB w upright: Encounter: Initial Comparison: None Findings: The visualized lung bases show mild atelectasis, greater on the left There is no free air on the upright view. The bowel gas pattern is nonobstructive and nonspecific. Gas is seen in nondilated small and large bowel to the level of the rectum. Moderate stool is seen throughout the colon. The bony structures are grossly unremarkable. Impression: Nonobstructive nonspecific bowel gas pattern. .
[2018-04-12] MEDS: NS 1,000 ML IV SCH (08:33)
[2018-04-12] MEDS ORDERED: FLUTICASONE NASAL SPRAY 50mcg EA NOSTRIL SCH (09:00)
[2018-04-12] MEDS: MULTI-VIT + MINERAL (Opti-gen) TABLET PO SCH ×3 (09:11→20:56)
[2018-04-12] MEDS: ENOXAPARIN 40 MG/0.4 ML INJECTION SQ SCH (09:11)
[2018-04-12] MEDS: ASPIRIN *EC* 81 MG TABLET PO SCH ×2 (09:12→20:56)
[2018-04-12] MEDS: SERTRALINE 50 MG TABLET PO SCH (09:12)
[2018-04-12] MEDS: POLYETHYL GLYCOL 3350 17gm PACKET PO SCH (09:12)
[2018-04-12] MEDS: ACETAMINOPHEN 325 MG TABLET PO SCH ×4 (09:14→20:56)
[2018-04-12] MEDS: INSULIN ASPART 100unit/ml INJECTION SQ PRN (11:52)
--- NOTE | 2018-04-12 14:10 | Orthopedic Progress Note ---
Date: Date: 04/12/18 Time: 1354 Subjective/Severity of Illness: Pt is an 87 yo female who underwent R total knee replacement on 03/28/[address] Tao. She has been back to independent living at [facility]. She reports increased pain over the weekend after PT last week and went back to using a walker due to this (had transitioned to a cane). Otherwise she has been doing well with therapy. Minimal swelling of right knee, no erythema, fever, chills. She finished Roxicodone a few days ago. Pain has been well controlled with Tylenol and Aleve. She was not feeling well yesterday and complaining of nausea. She notified her niece and was brought to [facility] ER, patient was admitted for hyponatremia of 123. Upon discharge from the hospital s/p Right TKA her Na was 138. Orthopedic Exam Vital signs: Temperature 97.1 F 04/12/18 07:17 Pulse Rate 68 04/12/18 07:17 Respiratory Rate 20 04/12/18 07:17 Blood Pressure 141/54 H 04/12/18 07:17 Pulse Oximetry 94 04/12/18 07:17 - Constitutional General Appearance: Present: alert, orientated x3, no acute distress - Respiratory Exam Present: non-labored - Cardiovascular Exam Present: pedal pulses intact - Extremities Exam Present: no edema, pulses intact, normal capillary refill. Absent: calf tenderness - Dressing Dressing: dry, intact, no drainage Comments: mepilex right knee - Integumentary Exam Present: pink, dry - Neurological Exam Present: intact to light touch, no deficits - Psychiatric Exam Present: alert, oriented - Labs Result Diagrams: 04/11/18 17:26 04/12/18 09:43 Abnormal lab results 04/11/18 04/11/18 04/11/18 Range/Units 17:26 17:26 21:47 RBC 3.93 L (4.00-5.20) M/MM3 Hgb 11.8 L (12-16) GM/DL Hct 34.5 L (36-46) % MPV 9.3 L (9.4-12.4) UM3 Neut % (Auto) 80.2 H (33-66) % Lymph % (Auto) 14.8 L (23-45) % Lymph # (Auto) 0.8 L (1-4.8) T/MM3 Sodium 123 L 127 L (136-146) MEQ/L Potassium (3.6-5) MEQ/L Chloride 89 L (98-107) MEQ/L Carbon Dioxide 20 L (22-30) MEQ/L Creatinine 0.4 L (0.7-1.2) mg/dL Glucose 183 H (65-110) MG/DL Calculated Osmolality 242 L (261-280) MOSM/KG Ur Specific [place] (1.015-1.025) 04/12/18 04/12/18 Range/Units 02:01 04:27 RBC (4.00-5.20) M/MM3 Hgb (12-16) GM/DL Hct (36-46) % MPV (9.4-12.4) UM3 Neut % (Auto) (33-66) % Lymph % (Auto) (23-45) % Lymph # (Auto) (1-4.8) T/MM3 Sodium 134 L D (136-146) MEQ/L Potassium 3.5 L (3.6-5) MEQ/L Chloride (98-107) MEQ/L Carbon Dioxide (22-30) MEQ/L Creatinine 0.4 L (0.7-1.2) mg/dL Glucose 133 H (65-110) MG/DL Calculated Osmolality 258 L (261-280) MOSM/KG Ur Specific [place] <=1.005 L (1.015-1.025) H & H 04/11/18 Range/Units 17:26 Hgb 11.8 L (12-16) GM/DL Hct 34.5 L (36-46) % Orthopedic Assessment and Plan (1) Status post total right knee replacement Status: Acute Assessment and Plan: Continue PT/OT for mobilization. WBAT Keep outpatient appt scheduled with Ortho next week. Continue ASA 81mg BID for total of 6 weeks post op for DVT prophylaxis. Hospital Course Summary Disclaimer: The visit summary below is not to be considered part of the above Progress Note. Hospital Course: 04/11/18 Admit, OBS. Received NS 500cc bolus in ER. Continue NS at 75ml/hr with sodium labs q 6 hrs. Adjust fluids as needed based on Na levels. Give Fleets enema and MOM/prune juice. Miralax q am and Senna q hs. Continue oxycodone IR 5-10mg as needed up to q 3 hrs. Tylenol QID routinely. Hold Aleve d/t Fleet enema administration. Hold ditropan for now due to constipation. Hold metformin until she is taking po well. SSI. Accuchecks. Ortho consult - Rafa Reardon PA-C will see patient in am. PT/OT consult SCD/Lovenox for DVT ppx Code status: DNR PCP - Joselin Alejandro APRN
--- NOTE | 2018-04-12 16:04 | Progress Note ---
- Date 04/12/18 Subjective: Patient resting in bedside chair at the time of interview. Patient's knees present at bedside. Patient had one episode of moderate, soft, brown, greasy stool noted earlier this morning following Fleet enema provided last night. No reported abdominal pain, no nausea, no vomiting. Patient reportedly had approximately 100% of lunch. Patient's niece concerned about continuing narcotics with continued constipation. Tentative plan to hold narcotic medications at nighttime when patient is resting in bed and to replace with oral Tylenol which has been previously ordered. No reported subjective fever, no chills, no flank pain, no dysuria, no burning urination. Objective Vital signs: Temperature 96 F L 04/12/18 15:54 Pulse Rate 70 04/12/18 15:54 Respiratory Rate 20 04/12/18 15:54 Blood Pressure 138/67 04/12/18 15:54 Pulse Oximetry 95 04/12/18 15:54 Height/Weight/BMI: Height 1.66 m Weight 78.2 kg Body Mass Index 28.7 - Additional findings Additional findings: General: Alert, awake, oriented x3. Not in acute distress. Head: Pupils equal, round, reactive to light and accommodation. Extraocular movements intact. Neck: No elevation in JVP. No pharyngeal erythema noted. Chest: The patient does not use accessory muscles for breathing. Lungs: Breath sounds audible on auscultation bilateral lung alfaro. No wheezing , no rhonchi, no crepitations, no crackles. No pleural rub. CVS: S1, S2 heard on auscultation. Normal rate and rhythm. No murmur, no S3/S4 gallops. Abdomen: Soft, nontender, no distention. Bowel sounds appreciated on auscultation. Skin: No rashes, no induration, no erythema. Capillary refill less than 4 seconds. 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 No evidence of pedal edema bilateral lower extremities. No calf tenderness bilaterally. Palpable dorsalis pedis and posterior tibial pulses bilateral lower extremities. Results - Labs CBC & Chem 7: 04/11/18 17:26 04/12/18 09:43 Labs: Laboratory Tests 04/11/18 04/11/18 04/12/18 17:26 21:47 02:01 Sodium 123 L 127 L Potassium Chloride Carbon Dioxide Anion Gap BUN Creatinine Estimated Creat Clear GFR Calculation BUN/Creatinine Ratio Glucose Calculated Osmolality Calcium Ur Collection Type Urine, void-cc/notcc Urine Color Yellow Urine Clarity Clear Urine pH 6.0 Ur Specific [place] <=1.005 L Urine Protein Negative Urine Glucose (UA) Negative Urine Ketones Negative Urine Occult Blood Trace-intact Urine Nitrate Negative Urine Bilirubin Negative Urine Urobilinogen 0.2 Ur Leukocyte Esterase Negative Urinalysis Comment Microscopic not ind. 04/12/18 04:27 Sodium 134 L D Potassium 3.5 L Chloride 98 D Carbon Dioxide 25 Anion Gap 11 BUN 7.0 Creatinine 0.4 L Estimated Creat Clear 42 GFR Calculation 151 BUN/Creatinine Ratio 18 Glucose 133 H Calculated Osmolality 258 L Calcium 8.8 Ur Collection Type Urine Color Urine Clarity Urine pH Ur Specific [place] Urine Protein Urine Glucose (UA) Urine Ketones Urine Occult Blood Urine Nitrate Urine Bilirubin Urine Urobilinogen Ur Leukocyte Esterase Urinalysis Comment - Impressions KUB x-ray upright performed on 04/11/2018 Impression: Nonobstructive nonspecific bowel gas pattern. Assessment and Plan (1) Hyponatremia Current visit: Yes Status: Acute Assessment and Plan: Assessment Hyponatremia - POA Hypokalemia, not POA Knee pain - S/P Rt TKA 03/28/[address] Tao Weakness Constipation r/t narcotic use Anemia - POA Type 2 DM (A1C 7.0% on 01/26/18) Depression Gluten intolerance Hypothyroidism (TSH 0.56 on 09/29/17) IBS HLD Urge incontinence Overweight - BMI 28 Plan Serum sodium 123 on admission, improved to 138 today. IV fluids discontinued. Patient had a bowel movement status post Fleets enema and MOM/prune juice provided last evening. Provided 40 meq oral potassium chloride for hypokalemia. Will monitor potassium level. We will continue Miralax q am and Senna q hs. Continue oxycodone IR 5-10mg as needed up to q 3 hrs. Tylenol QID routinely, to be used especially at nighttime. Hold ditropan for now due to constipation. Hold metformin until she is taking po well. SSI. Accuchecks. Ortho consult -patient seen by Ramya Baptiste APRN today, recommendation for WBAT , PT/OT for mobilization, continue ASA 81 by mouth twice a day for 6 weeks postop DVT prophylaxis. PT/OT consult SCD/Lovenox for DVT ppx DVT Prophylaxis: SCD's, Lovenox Resuscitation Status: Do Not Resuscitate - Physician Narrative Narrative: Date: 04/12/18 Time: 1601 Hospital Course Summary Disclaimer: The visit summary below is not to be considered part of the above Progress Note. Hospital Course: 04/11/18 Admit, OBS. Received NS 500cc bolus in ER. Continue NS at 75ml/hr with sodium labs q 6 hrs. Adjust fluids as needed based on Na levels. Give Fleets enema and MOM/prune juice. Miralax q am and Senna q hs. Continue oxycodone IR 5-10mg as needed up to q 3 hrs. Tylenol QID routinely. Hold Aleve d/t Fleet enema administration. Hold ditropan for now due to constipation. Hold metformin until she is taking po well. SSI. Accuchecks. Ortho consult - Rafa Reardon PA-C will see patient in am. PT/OT consult SCD/Lovenox for DVT ppx Code status: DNR PCP - Joselin Alejandro APRN 04/12/2018 Serum sodium 123 on admission, improved to 138 today. IV fluids discontinued. Patient had a bowel movement status post Fleets enema and MOM/prune juice provided last evening. We will continue Miralax q am and Senna q hs. Continue oxycodone IR 5-10mg as needed up to q 3 hrs. Tylenol QID routinely, to be used especially at nighttime. Hold ditropan for now due to constipation. Hold metformin until she is taking po well. SSI. Accuchecks. Ortho consult -patient seen by Ramya Baptiste APRN today, recommendation for WBAT , PT/OT for mobilization, continue ASA 81 by mouth twice a day for 6 weeks postop DVT prophylaxis.
[2018-04-12 17:41] VITALS: BMI 28.2
[2018-04-12] MEDS ORDERED: ACETAMINOPHEN 325 MG TABLET PO ONE (18:00)
[2018-04-12] MEDS: SENNOSIDES 8.6 MG TABLET PO SCH (20:57)
[2018-04-12] MEDS ORDERED: ATORVASTATIN 10 MG TABLET PO SCH (21:00)
[2018-04-13] MEDS ORDERED: LEVOTHYROXINE 112 MCG TABLET PO SCH (06:30)
[2018-04-13] MEDS: MULTI-VIT + MINERAL (Opti-gen) TABLET PO SCH (09:32)
[2018-04-13] MEDS: ACETAMINOPHEN 325 MG TABLET PO SCH ×2 (09:32→13:55)
[2018-04-13] MEDS: ASPIRIN *EC* 81 MG TABLET PO SCH (09:32)
[2018-04-13] MEDS: POLYETHYL GLYCOL 3350 17gm PACKET PO SCH (09:33)
[2018-04-13] MEDS: SERTRALINE 50 MG TABLET PO SCH (09:33)
[2018-04-13] MEDS: ENOXAPARIN 40 MG/0.4 ML INJECTION SQ SCH (09:33)
[2018-04-13] MEDS: INSULIN ASPART 100unit/ml INJECTION SQ PRN (15:00)
[2018-04-13 15:17] VITALS: BP 128/57; PULSE 62; RESP 18; TEMP 98.3; O2SAT 97
--- NOTE | 2018-04-13 16:27 | Discharge Summary ---
Discharge Information Date of admission: 04/11/18 17:54 Anticipated date of discharge: 04/13/18 Attending Physician: Zacarias Biggs MD Primary care physician: Joselin Alejandro APRN Consults: 04/11/18 18:58 Physician Consult [CONS] Routine Consulting Provider: Rafa Reardon Reason For Exam: knee pain Ordering Provider has Notified [facility]: Yes Comment: contacted from ER - Discharge Diagnosis (1) Hyponatremia Status: Resolved Hypokalemia, resolved, not POA Knee pain - S/P Rt TKA 03/28/[address] Tao Weakness Constipation r/t narcotic use Anemia - POA Type 2 DM (A1C 7.0% on 01/26/18) Depression Gluten intolerance Hypothyroidism (TSH 0.56 on 09/29/17) IBS HLD Urge incontinence Overweight - BMI 28 - Laboratory Labs: 04/11/18 17:26 04/13/18 09:38 Laboratory Tests 04/11/18 04/11/18 04/11/18 17:26 17:26 17:26 WBC 5.3 RBC 3.93 L Hgb 11.8 L Hct 34.5 L MCV 87.8 MCH 30.0 MCHC 34.2 RDW Std Deviation 37.6 Plt Count 360 D MPV 9.3 L Immature Gran % (Auto) 0.2 Neut % (Auto) 80.2 H Lymph % (Auto) 14.8 L Sodium 123 L Potassium 3.8 Chloride 89 L Carbon Dioxide 20 L Anion Gap 14 BUN 10.0 Creatinine 0.4 L Estimated Creat Clear 43 GFR Calculation 151 BUN/Creatinine Ratio 25 Glucose 183 H Calculated Osmolality 242 L Calcium 8.7 Magnesium 1.7 Ur Collection Type Urine Color Urine Clarity Urine pH Ur Specific [place] Urine Protein Urine Glucose (UA) Urine Ketones Urine Occult Blood Urine Nitrate Urine Bilirubin Urine Urobilinogen Ur Leukocyte Esterase Urinalysis Comment 04/11/18 04/12/18 04/12/18 21:47 02:01 04:27 WBC RBC Hgb Hct MCV MCH MCHC RDW Std Deviation Plt Count MPV Immature Gran % (Auto) Neut % (Auto) Lymph % (Auto) Sodium 127 L 134 L D Potassium Chloride Carbon Dioxide Anion Gap BUN Creatinine Estimated Creat Clear GFR Calculation BUN/Creatinine Ratio Glucose Calculated Osmolality Calcium Magnesium Ur Collection Type Urine, void-cc/notcc Urine Color Yellow Urine Clarity Clear Urine pH 6.0 Ur Specific [place] <=1.005 L Urine Protein Negative Urine Glucose (UA) Negative Urine Ketones Negative Urine Occult Blood Trace-intact Urine Nitrate Negative Urine Bilirubin Negative Urine Urobilinogen 0.2 Ur Leukocyte Esterase Negative Urinalysis Comment Microscopic not ind. 04/12/18 04/13/18 09:43 09:38 WBC RBC Hgb Hct MCV MCH MCHC RDW Std Deviation Plt Count MPV Immature Gran % (Auto) Neut % (Auto) Lymph % (Auto) Sodium 138 136 Potassium Chloride Carbon Dioxide Anion Gap BUN Creatinine Estimated Creat Clear GFR Calculation BUN/Creatinine Ratio Glucose Calculated Osmolality Calcium Magnesium Ur Collection Type Urine Color Urine Clarity Urine pH Ur Specific [place] Urine Protein Urine Glucose (UA) Urine Ketones Urine Occult Blood Urine Nitrate Urine Bilirubin Urine Urobilinogen Ur Leukocyte Esterase Urinalysis Comment - Radiology Radiology: KUB x-ray upright performed on 04/11/2018 Impression: Nonobstructive nonspecific bowel gas pattern. History of Present Illness HPI: Pt is an 87 yo female who underwent R total knee replacement on 03/28/[address] Tao. She returned to her apartment at [place] following surgery and was doing well. She states that she had some increased pain with some PT treatments recently and had been taking her oxycodone 2 pills 3-4x a day and got constipated. Her last "good" BM was 9 days ago. She's had some small movements (2 today), but doesn't feel at all that she has had significant movement. She is able to pass gas and isn't have pain, is just uncomfortable. She has had some nausea and decreased appetite the past few days but no vomiting. She ate a small lunch today. She's been taking a subtherapeutic dose of daily miralax and Colace. She has tried 2 suppositories and had a "little success" with each supp. She has had progressive weakness over the past several days attributed to not eating very much. She states she had been doing well just walking with a cane prior to her recent setback. In the ED, she had abdominal films showing increased gas/stool. Her sodium today was 123 and was 138 on day of dismissal following surgery. Hgb stable at 11.8 -on discharge it was 10.4. (Pre-op 13.7) Patient lives independently in a [place] at [place]. Her hope is to return home. Objective Vital signs: Temperature 98.3 F 04/13/18 15:16 Pulse Rate 62 04/13/18 15:16 Respiratory Rate 18 04/13/18 15:16 Blood Pressure 128/57 04/13/18 15:16 Pulse Oximetry 97 04/13/18 15:16 Height/Weight/BMI: Height 1.66 m Weight 77.7 kg Body Mass Index 28.2 - Additional findings Additional findings: General: Alert, awake, oriented x3. Not in acute distress. Head: Pupils equal, round, reactive to light and accommodation. Extraocular movements intact. Neck: No elevation in JVP. No pharyngeal erythema noted. Chest: The patient does not use accessory muscles for breathing. Lungs: Breath sounds audible on auscultation bilateral lung alfaro. No wheezing , no rhonchi, no crepitations, no crackles. No pleural rub. CVS: S1, S2 heard on auscultation. Normal rate and rhythm. No murmur, no S3/S4 gallops. Abdomen: Soft, nontender, no distention. Bowel sounds appreciated on auscultation. Skin: No rashes, no induration, no erythema. Capillary refill less than 4 seconds. 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 No evidence of pedal edema bilateral lower extremities. No calf tenderness bilaterally. Palpable dorsalis pedis and posterior tibial pulses bilateral lower extremities. Hospital Course This is a general summary of the patient's hospital course. For more details refer to the complete medical record. Hospital course: 04/11/18 Received NS 500cc bolus in ER. Continue NS at 75ml/hr with sodium labs q 6 hrs. Adjust fluids as needed based on Na levels. Give Fleets enema and MOM/prune juice. Miralax q am and Senna q hs. Continue oxycodone IR 5-10mg as needed up to q 3 hrs. Tylenol QID routinely. Hold Aleve d/t Fleet enema administration. Hold ditropan for now due to constipation. Hold metformin until she is taking po well. SSI. Accuchecks. Ortho consult - Rafa Reardon PA-C will see patient in am. PT/OT consult SCD/Lovenox for DVT ppx Code status: DNR PCP - Joselin Alejandro APRN 04/12/2018 Serum sodium 123 on admission, improved to 138 today. IV fluids discontinued. Patient had a bowel movement status post Fleets enema and MOM/prune juice provided last evening. We will continue Miralax q am and Senna q hs. Continue oxycodone IR 5-10mg as needed up to q 3 hrs. Tylenol QID routinely, to be used especially at nighttime. Hold ditropan for now due to constipation. Hold metformin until she is taking po well. SSI. Accuchecks. Ortho consult -patient seen by Ramya Baptiste APRN today, recommendation for WBAT , PT/OT for mobilization, continue ASA 81 by mouth twice a day for 6 weeks postop DVT prophylaxis. 04/13/2018 - discharge Physical therapy consulted, patient able to ambulate with walker with physical therapy assistance. Serum sodium 136 this morning, serum potassium 4.2. No reported abdominal discomfort, no nausea, no vomiting. Constipation has resolved, patient has had multiple bowel movements. Home health was offered by [employer] [employer], patient declined. Patient to follow outpatient with PT/OT as previously arranged for postoperative rehabilitation. Patient to follow-up with PCP Joselin Alejandro APRN in 1 week after discharge. Patient advised to keep follow-up appointment with orthopedic surgery with Dr. Tao as scheduled. Time spent with patient: greater than 35 minutes Resuscitation Status: Do Not Resuscitate Discharge Plan - Discharge Disposition Discharge Date: 04/13/18 Disposition: 01 Discharged Home, Self-Care *Condition: Stable Reason For Visit (Visit label in EMR): symptomatic hyponatremia - Discharge Medications *Discharge Medications: New Milk of Magnesia [Mom] 30 ml PO DAILY PRN #210 ml PRN Reason: Constipation Continue Cetirizine HCl [Zyrtec] 10 mg PO DAILY Vit C/E/Zn/Coppr/Lutein/Zeaxan [Preservision Areds 2 Softgel] 1 cap PO BID CALCIUM CITRATE 315mg + D [Citrical + D] 1 tab PO DAILY Levothyroxine Tab [Synthroid] 112 mcg PO DAILY Metformin HCl 1,000 mg PO BID Atorvastatin [Lipitor] 10 mg PO DAILY Fluticasone Nasal [place] [Flonase] 1 spray EA NOSTRIL DAILY Naproxen [Aleve (Naproxen) 220 mg] 440 mg PO BIDWM Docusate Sodium [Colace] 100 mg PO BID PRN PRN Reason: Constipation Oxycodone *IR* [Roxicodone *Ir*] 5 - 10 mg PO Q3H PRN PRN Reason: Pain Aspirin *EC* [Ecotrin] 81 mg PO BID Acetaminophen 650 mg PO QID Oxybutynin IR [Ditropan] 5 mg PO DAILY PEG 3350 17gm PACKET [Miralax] 17 gm PO DAILY PRN PRN Reason: Constipation Sertraline [Zoloft] 50 mg PO DAILY - Discharge Packet/Instructions *Diet: ADA 2000 kcal low-salt diet. *Activity: As recommended by physical therapy. Fall precautions. Weightbearing as recommended by orthopedic surgery. *Pain Management/Treatment: Patient to take previously prescribed oxycodone IR 5 mg every 4 hours as needed for severe pain. *Wound Care: As recommended by orthopedic surgery, Dr. Tao *Expected Signs/Symptoms: Continued symptomatic improvement. Take MOM with prune juice as needed for constipation. Continue following physical therapy recommendations. *Notify Physician if: Fever, chills, increased shortness of breath, intractable nausea, vomiting, abdominal pain, chest pain, palpitations, dizziness, blurred vision, diarrhea, fatigue, weakness, flank pain, dysuria, black tarry stools, bright red blood per rectum or any other concerning findings. *During Business Hours Contact: Your PCP, Joselin Alejandro APRN *After Business Hours Contact: Call [facility] at [phone] and ask that the on-call physician be paged *Pending Lab/Results: No Pending Lab - Referrals/Follow Up *Referrals/Follow Up: Joselin Alejandro APRN [Primary Care Provider] - 1 Week Sriram Tao MD [Physician] - 1 Week - Patient Handouts - Dismissal Complete Discharge Instructions are:: Complete Physician Narrative - Narrative Attestation Narrative: Date: 04/13/18 Time: 3422
== END 2018-04-13 17:20 | disposition home or self-care (01) | DRG 641 ==
LOC: ED 16:28 → EDHOLD 17:54 → MED 18:15
PROVIDERS: ADMIT Internal Medicine; ATTEND Internal Medicine